=== PATIENT | female | born 1985 | race Caucasian/White ===

== ENCOUNTER 2017-03-28 17:12 | Observation (INO) | payer OTHER ==
[2017-03-28] MEDS ORDERED: Morphine 4 MG/ML VIAL ONE (18:15)
[2017-03-28] MEDS ORDERED: Ketorolac Tromethamine 30 MG/ML VIAL ONE (19:52)
--- NOTE | 2017-03-28 20:34 | RAD ---
AP VIEW CHEST 03/28/17 HISTORY: Abdominal pain. AP view chest is obtained. The lungs are well aerated. No evidence of active intrathoracic disease se en. No evidence of effusions, pneumonia or pneumothorax seen. IMPRESSION: Unremarkable AP view chest. POS: [facility]
--- NOTE | 2017-03-28 21:33 | ULT ---
HISTORY: Right upper quadrant pain. RIGHT UPPER QUADRANT ULTRASOUND 03/28/17 Multiple longitudinal and transverse images of the right upper quadrant of the abdomen is obtained us ing a multihertz curvilinear transducer. Real time, color flow and spectral waveform doppler analysis used to evaluate the right upper quadrant. The patient has some hepatomegaly. Mid clavicular measurement measures 20.7 cm. There is marked gallbladder wall thickening. Gallbladder wall measures up to 6 mm in thickness. There is echogenic material seen within the gallbladder lumen compatible with gallbladder sludge and some small stones. Common bile duct is of normal size measuring 5 mm. No evidence of intrahepatic biliary dilatation is seen. The visualized portions of the pancreas is unremarkable. The right kidney is unremarkable measu ring 11.6 cm from pole to pole. No evidence of renal parenchymal masses or lesions seen. No evidence of ascites seen. Normal hepatopedal flow is seen. IMPRESSION: Gallbladder wall thickening with gallstones and gallbladder sludge. Findings concerning for cholelith iasis and cholecystitis. POS: [facility]
[2017-03-28] MEDS ORDERED: Ketorolac Tromethamine 30 MG/ML VIAL IVP PRN (23:22)
[2017-03-28] MEDS ORDERED: Acetaminophen 325 MG TAB PO PRN (23:23)
[2017-03-28] MEDS ORDERED: Ondansetron ODT 4 MG TAB SL PRN (23:23)
[2017-03-28] MEDS ORDERED: Ondansetron HCl/PF 4 MG/2 ML Vial IVP PRN (23:23)
[2017-03-28] MEDS: Sodium Chloride 0.9% 1,000 ML IV SCH (23:32)
[2017-03-29] MEDS: Sodium Chloride 0.9% 1,000 ML IV SCH (02:41)
[2017-03-29] MEDS ORDERED: Ondansetron HCl/PF 4 MG/2 ML Vial IVP PRN ×2 (03:46→11:11)
[2017-03-29] MEDS ORDERED: Lactated Ringer's 1,000 ML IV SCH (04:00)
[2017-03-29] MEDS ORDERED: Acetaminophen 1,000 MG in Premix Bag 1 BAG IVPB SCH (06:00)
[2017-03-29] MEDS: Ketorolac Tromethamine 30 MG/ML VIAL IVP SCH ×2 (06:00→08:01)
[2017-03-29] MEDS ORDERED: Ketorolac Tromethamine 30 MG/ML VIAL IVP SCH (08:00)
--- NOTE | 2017-03-29 08:55 | HP ---
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 She is 10 months and this is her second episode of epigastric right upper quadrant pain with back radiation, associated with nausea. She had a severe episode yest erday. She presents to the emergency room. Liver function tests are normal. Ultrasound reveals gal lstones, gallbladder sludge and normal bile duct caliber 5 mm. She was admitted overnight for intrav enous antibiotics. ALLERGIES: None. TOBACCO: Five or 6 cigarettes a day. ALCOHOL: Rarely. MEDICATIONS: None routinely. PAST SURGICAL HISTORY: . PAST MEDICAL HISTORY: Noncontributory. REVIEW OF SYSTEMS: Ten point noncontributory. PHYSICAL EXAMINATION: VITAL SIGNS: Weight 164 pounds, 97.9 degrees, 49, 16, 97/47. HEENT: Unremarkable. Sclerae nonicteric. LUNGS: Clear to auscultation. CARDIAC: Regular rate and rhythm without murmur or gallop. ABDOMEN: Soft. Mild tenderness in right upper quadrant with guarding. EXTREMITIES: Unremarkable. LYMPH: Neck, axilla, groins without lymphadenopathy. NEURO: Neurologically intact without deficit. LABORATORY: Hemoglobin 14.3, white count 9.3. Urine test is negative. Sodium 135, potass ium 3.7, carbon dioxide 21, BUN 8, creatinine 0.65, bilirubin 0.6, AST, ALT normal at 19 and 18 respe ctively, alkaline phosphatase 54. ASSESSMENT AND PLAN: Cholecystitis and cholelithiasis. Recommend laparoscopic video cholecystectomy . Risks of infection, bleeding, visceral and biliary injury, possibly open procedure were explained. Questions answered and she consents. We will plan laparoscopic cholecystectomy today and plan disc harge home postoperatively when she is tolerating liquids. Diet and activity postoperatively are as tolerated. There were no activity restrictions. She is encouraged to be ambulatory and not smoke. She should follow up in my office in 2-3 weeks postoperatively.
[2017-03-29] MEDS ORDERED: FLU VACC QS2017-18 36 mo. & older 0.5 ML SYRINGE IM ONE (09:00)
[2017-03-29] MEDS ORDERED: Bupivacaine/Epinephrine 0.25% 30 ML VIAL ONE (09:58)
[2017-03-29] MEDS ORDERED: Fentanyl 250 MCG/5 ML VIAL ONE (10:03)
[2017-03-29] MEDS ORDERED: Levofloxacin 500 mg/D5W 100 ml Premix Bag ONE (10:04)
[2017-03-29] MEDS ORDERED: Promethazine HCl 25 MG/ML VIAL IM PRN (11:11)
[2017-03-29] MEDS ORDERED: HYDROmorphone 2 MG/ML VIAL SLOW IVP PRN (11:11)
[2017-03-29] MEDS ORDERED: Meperidine HCl/PF 25 MG/ML VIAL SLOW IVP PRN (11:11)
[2017-03-29] MEDS ORDERED: Promethazine HCl 25 MG/ML VIAL SLOW IVP PRN (11:11)
[2017-03-29] MEDS ORDERED: Ketorolac Tromethamine 30 MG/ML VIAL IVP PRN (11:11)
[2017-03-29] MEDS ORDERED: Fentanyl 100 MCG/2 ML VIAL ONE (11:23)
[2017-03-29] MEDS ORDERED: Acetaminophen 500 MG TAB PO PRN (12:10)
[2017-03-29] MEDS ORDERED: Ondansetron ORAL SOLN. 4 MG/5 ML UDCUP PO PRN ×2 (12:10)
[2017-03-29] MEDS ORDERED: traMADol HCl 50 MG TAB PO PRN ×2 (12:10)
[2017-03-29] MEDS ORDERED: Ibuprofen 600 MG TAB PO PRN (12:10)
[2017-03-29] MEDS ORDERED: Ondansetron ODT 8 MG TAB SL PRN (12:10)
[2017-03-29] MEDS ORDERED: Ondansetron ODT 8 MG TAB PO PRN (12:10)
[2017-03-29] MEDS ORDERED: Ondansetron ODT 4 MG TAB PO PRN (12:10)
--- NOTE | 2017-03-29 13:34 | OP ---
DATE OF PROCEDURE: 03/29/2017 PREOPERATIVE DIAGNOSES: Acute cholecystitis, hydrops of the gallbladder, cholelithiasis, gallbladder outlet obstruction. POSTOPERATIVE DIAGNOSES: Acute cholecystitis, hydrops of the gallbladder, cholelithiasis, gallbladde r outlet obstruction. PROCEDURE: Laparoscopic video cholecystectomy. SURGEON: Dr. Himanshu Sky. ANESTHESIA: General. Local 0.25% Marcaine with epinephrine, 30 mL, mixed with 2% Xylocaine, 10 mL. PROCEDURE IN DETAIL: The patient was taken to the operating room where under general anesthesia, abd omen was prepared with chloraprep, draped in routine fashion. Local anesthetic infiltrated into skin and subcutaneous tissue about each port site. Infraumbilical incision made and pneumoperitoneum to 15 mmHg obtained with the Veress needle, replacing it with a 5 port and laparoscope inserted. Right subxiphoid incision made and 11 port placed, subcostal incision made, mid clavicular anterior axillar y lines and 5 ports placed. Gallbladder was acutely inflamed, thickened wall edematous. Fundus gras ped at the cephalad. Infundibulum grasped and reflected laterally. Cystic artery and duct dissected free. Critical view obtained with two-thirds dissection cystic plate and cystic artery and duct suellen kelsey clipped proximally, divided, and gallbladder dissected free from its edematous, inflamed attachme nts of the liver bed, removing the gallbladder in Endobag and submitted to Pathology. Good hemostasi s ensured with the cautery and irrigant and pneumoperitoneum evacuated. All instruments removed and all skin incisions approximated with interrupted subdermal 4-0 Monocryl and DermaGlue applied.
[2017-03-29 14:05] VITALS: BP 103/60; TEMP 97.9
[2017-03-29] MEDS ORDERED: Ketorolac Tromethamine 30 MG/ML VIAL ONE (14:47)
[2017-03-29] MEDS ORDERED: Propofol 200 MG/20 ML VIAL ONE (14:47)
[2017-03-29] MEDS ORDERED: Ondansetron HCl/PF 4 MG/2 ML Vial ONE (14:47)
[2017-03-29] MEDS ORDERED: Dexamethasone 20 MG/5 ML VIAL ONE (14:47)
[2017-03-29] MEDS ORDERED: Lidocaine 1% PF 5 ML VIAL ONE (14:47)
[2017-03-29] MEDS ORDERED: Glycopyrrolate 0.2 MG/ML 5 ML SYRINGE ONE (14:47)
--- NOTE | 2017-03-29 17:33 | DIS ---
DATE OF ADMISSION: 03/28/2017 DATE OF DISCHARGE: 03/29/2017 DISCHARGE DIAGNOSES: Acute cholecystitis, cholelithiasis, hydrops of the gallbladder, 10 months post . PROCEDURES: Ultrasound of gallbladder, laparoscopic video cholecystectomy. HISTORY: A 32-year-old female, 10 months , second episode of right upper quadrant pain, ba ck radiation, nausea, vomiting, presented to the emergency room. Ultrasound demonstrates gallstones, normal bile duct caliber. Liver function tests normal. She received intravenous fluids and antibio tics overnight and underwent laparoscopic video cholecystectomy, postoperatively recovering, being di scharged home. Follow up in Dr. Sky's office in approximately one to three weeks. Diet and activity as tolerated . No lifting restrictions. [id number]-[id number] Tylenol and ibuprofen for pain; [facility] prescriptions #2 5, one refill given.
--- NOTE | 2017-04-15 15:00 | EKG ---
Test Reason : Blood Pressure : / mmHG Vent. Rate : 047 BPM Atrial Rate : 047 BPM P-R Int : 130 ms QRS Dur : 088 ms QT Int : 466 ms P-R-T Axes : 052 071 049 degrees QTc Int : 412 ms Sinus bradycardia with sinus arrhythmia Otherwise normal ECG Confirmed by NEGIN MENJIVAR D.O. ([id number]), web editor SG ORELLANA ([id number]) on 04/15/2017 2:59:13 PM Referred By: Confirmed By:NEGIN MENJIVAR D.O.
== END 2017-03-29 14:40 | disposition home or self-care (01) ==
LOC: ERS 17:12 → 3SE 20:24
PROVIDERS: ADMIT Specialist; ATTEND Specialist
PROC: 0FT44ZZ Resection of Gallbladder, Percutaneous Endoscopic Approach (ICD-10-PCS; principal; 2017-03-29)
DX: K80.12 Calculus of gallbladder with acute and chronic cholecystitis without obstruction (principal); K82.1 Hydrops of gallbladder; F17.210 Nicotine dependence, cigarettes, uncomplicated; Z98.890 Other specified postprocedural states
CPT/HCPCS: 71010; 76705; 88304; 93005; 96361; 96365; 96374; 96375; 96376; G0378; J0131; J1100; J1885; J1956; J2001; J2270; J2405; J2704; J3010; Q0162

== ENCOUNTER 2017-05-02 00:47 | Inpatient (IN) | payer OTHER ==
[2017-05-02 02:46] LABS: #Eosinphils 0.2 thou/uL (0.0-0.7); #Lymphocytes 1.5 thou/uL (1.20-3.40); #Monocytes 0.5 thou/uL (0.11-0.59); #Neutrophils 2.6 thou/uL (1.40-6.50); %Basophils 0.5 % (0.0-1.0); %Eosinophils 3.8 % (0.0-10.0); %Lymphocytes 32.5 % (21.0-51.0); %Monocytes 9.4 % (0.0-10.0); %Neutrophils 53.8 % (42.0-75.0); Hemoglobin 11.9 g/dL (12.0-16.0); Mean Corpuscular HGB CONC 34.3 g/dL (32.0-36.0); Mean Corpuscular Hemoglobin 32.9 pg (27.0-31.0); Mean Corpuscular Volume 96.1 fl (81.0-99.0); Mean Platelet Volume 7.9 fL (7.4-10.4); Platelet Count 177 thou/uL (130-400); RBC Distribution Width 11.4 % (11.5-14.5); White Blood Cell (WBC) Count 4.8 thou/uL (4.8-10.8)
[2017-05-02 02:54] LABS: BHCG - Serum Negative (NEGATIVE); INR-International Normal Ratio 1.1; PTT 28.1 SEC (22.9-36.1); Pregs Control Background? CLEAR/WHITE (CLR/WHITE); Pregs Control Bar Appear? YES (CONTROL BAR); Prothrombin Time 14.1 SEC (12.0-14.7)
[2017-05-02 03:08] LABS: ALT (SGPT) 463 U/L (8-55); AST (SGOT) 274 U/L (5-34); Albumin 3.7 g/dL (3.5-5.0); Alkaline Phosphatase 260 U/L (40-150); Anion Gap 10 mmol/L (10-20); BUN (Urea Nitrogen) 10 mg/dL (7.0-18.7); Bilirubin, Total 5.1 mg/dL (0.2-1.2); Calc. Creatinine Clearance 0 mL/min (70-130); Calcium 9.1 mg/dL (7.8-10.44); Carbon Dioxide 26 mmol/L (22-29); Chloride 107 mmol/L (98-107); Estimated GFR-MDRD Greater than 90; Globulin 2.6 g/dL (2.4-3.5); Glucose 98 mg/dL (70-105); Lipase 12 U/L (8-78); Potassium 3.7 mmol/L (3.5-5.1); Protein, Total 6.3 g/dL (6.0-8.3); Sodium 139 mmol/L (136-145)
[2017-05-02 03:24] LABS: HBCM Index 0.12 S/CO (0-0.79); HBSAg Index 0.78 S/CO (0-0.99); Hep A IgM AB Non-Reactive (NonReactive); Hep A IgM S/CO 0.17 S/CO (0-0.79); Hep B Surf Ag Non-Reactive S/CO (NonReactive); Hep C IgG Ab Non-Reactive (NonReactive); Hep C Index 0.17 S/CO (0-0.79); Hepatitis B Core IGM Abs Non-Reactive (NonReactive)
[2017-05-02] MEDS ORDERED: Morphine 4 MG/ML Carpuject ONE (05:29)
[2017-05-02] MEDS ORDERED: Ketorolac Tromethamine 30 MG/ML VIAL ONE (05:31)
[2017-05-02] MEDS ORDERED: Ondansetron HCl/PF 4 MG/2 ML Vial IVP PRN ×3 (06:05→13:29)
[2017-05-02] MEDS ORDERED: Acetaminophen 325 MG TAB PO PRN ×2 (06:05→08:33)
[2017-05-02] MEDS ORDERED: Sodium Chloride 0.9% 1,000 ML IV SCH (06:05)
[2017-05-02] MEDS ORDERED: Ondansetron ODT 4 MG TAB SL PRN (06:05)
[2017-05-02 07:43] VITALS: BMI 21.7
--- NOTE | 2017-05-02 09:20 | ULT ---
PRELIMINARY REPORT/[facility]/EMERGENCY AFTER HOURS PROCEDURE: EXAM: US Abdomen Limited, Right Upper Quadrant EXAM DATE/TIME: Exam ordered 05/02/2017 2:04 AM CLINICAL HISTORY: 32 years old, female; Pain and signs and symptoms; Nausea and vomiting; Abdominal pain; Localized; Ri ght upper quadrant (ruq); Prior surgery; Surgery date: 1-6 months; Surgery type: Cholecystectomy TECHNIQUE: Real-time ultrasound of the right upper quadrant with image documentation. COMPARISON: No relevant prior studies available. FINDINGS: Liver: Hepatic steatosis. Mild diffuse intrahepatic biliary ductal dilatation. Extrahepatic bile duct is normal at 5 mm in caliber. Gallbladder: Prior cholecystectomy. Common bile duct: See above. Pancreas: Unremarkable as visualized. Right kidney: Unremarkable. No stones. No solid mass. No hydronephrosis. IMPRESSION: Mild diffuse intrahepatic biliary ductal dilatation without extrahepatic biliary ductal dilatation. Thank you for allowing us to participate in the care of your patient. Dictated and Authenticated by: Don Pedro MD 05/02/2017 2:46 AM Central Time ([place] & [place]) FINAL REPORT RIGHT UPPER QUADRANT ULTRASOUND: DATE: 05/02/17. COMPARISON: 03/28/17. HISTORY: Pain, abnormal liver function tests, prior cholecystectomy. FINDINGS: I agree with the preliminary [facility] report. The imaged pancreas is unremarkable. The tail is partial ly obscured by bowel gas. There is mild intrahepatic biliary dilatation, etiology/significance uncertain. The common bile duct measures in the 5 mm range, within normal limits. Gallbladder is surgically absent. Right kidney m easures 10.8 cm in craniocaudal dimension and demonstrates no stone, hydronephrosis, or mass. IMPRESSION: Mild intrahepatic biliary prominence, of uncertain significance given recent cholecystectomy. Clinic al correlation required. POS: [facility]
[2017-05-02] MEDS ORDERED: Morphine 4 MG/ML VIAL SLOW IVP PRN (09:37)
[2017-05-02] MEDS: Sodium Chloride 0.9% 1,000 ML IV SCH ×2 (10:25→23:12)
[2017-05-02] MEDS: Morphine 2 MG/ML SYRINGE SLOW IVP PRN ×3 (10:39→23:09)
[2017-05-02] MEDS: Nicotine 14 MG PATCH TD SCH (10:47)
--- NOTE | 2017-05-02 10:54 | HP ---
PRIMARY CARE PHYSICIAN: None. CHIEF COMPLAINT: Abdominal pain. HISTORY OF PRESENT ILLNESS: Ms. Simpson is a pleasant 32-year-old lady who was seen at [facility] on 05/02/2017. She was hospitalized at this facility from 03/28/2017 to 03/29/2017 for acute cholecystitis and fabrizio lithiasis. She underwent laparoscopic cholecystectomy. She reports doing well until 3 days ago. At that time, she developed right upper quadrant pain. She describes the pain as sharp, radiating to the back, she vomited once, 3 days ago. She denies any di arrhea. She denies any chest pain. She describes pain has been constant, worse at times, but no kno wn aggravating or relieving factors. She went to the emergency room at [facility] and was subsequently t ransferred to this facility. REVIEW OF SYSTEMS: The following complete review of systems was negative, unless otherwise mentioned in the HPI or below: Constitutional: Weight loss or gain, ability to conduct usual activities. Skin: Rash, itching. Eyes: Double vision, pain. ENT/Mouth: Nose bleeding, neck stiffness, pain, tenderness. Cardiovascular: Palpitations, dyspnea on exertion, orthopnea. Respiratory: Shortness of breath, wheezing, cough, hemoptysis, fever or night sweats. Gastrointestinal: Poor appetite, abdominal pain, heartburn, nausea, vomiting, constipation, or diarr hea. Genitourinary: Urgency, frequency, dysuria, nocturia. Musculoskeletal: Pain, swelling. Neurologic/Psychiatric: Anxiety, depression. Allergy/Immunologic: Skin rash, bleeding tendency. PAST MEDICAL HISTORY: None. PAST SURGICAL HISTORY: Cholecystectomy and section. PSYCHIATRIC HISTORY: Depression. SOCIAL HISTORY: Occasional alcohol use, 5-6 cigarettes a day, no recreational drugs. ALLERGIES: No known drug allergies. CURRENT MEDICATIONS: None. FAMILY HISTORY: Significant for cholelithiasis. PHYSICAL EXAMINATION: GENERAL: On examination, Ms. Simpson is awake and alert, not in acute distress. VITAL SIGNS: Blood pressure is 100/64. Pulse is 43. She is breathing at rate of 16 and saturating 100% on room air. EYES: She has scleral icterus, no conjunctival pallor. ENT: Dry mucosal membranes, no oropharyngeal erythema or exudates. NECK: Supple, nontender, normal range of movement. Trachea is midline. RESPIRATORY: Accessory muscles of breathing are not active. Chest wall movements are symmetric bila terally. LUNGS: Clear to auscultation without wheeze, rhonchi or crepitations. CARDIOVASCULAR: S1 and S2 are heard, regular, and bradycardic. Peripheral pulses are palpable. No carotid bruit, no pericardial rub. ABDOMEN: Soft, mild right upper quadrant tenderness present, no guarding or rigidity. Bowel sounds are heard. Surgical site is clean. NEUROLOGIC: Cranial nerves II-XII are intact, deep tendon reflexes are 2+. SKIN: No rashes or subcutaneous nodules. MUSCULOSKELETAL: The Power is 5/5 in all 4 extremities. LYMPHATIC: No cervical lymphadenopathy. PSYCHIATRIC: Normal mood, normal affect, patient is oriented to person, place, and time. IMAGING DATA AND LABORATORY DATA: Ms. Simpson's labs and investigations were reviewed. I reviewed her e lectrocardiogram, which shows sinus bradycardia, no ST changes to suggest an acute coronary syndrome. I also reviewed her chest x-ray, which does not show any pulmonary infiltrates. She had CT scan of the abdomen and pelvis, which showed post-cholecystectomy changes and mild periportal edema. There was no CT evidence of appendicitis. She had a small amount of free fluid in the pelvis, probably phy siologic according to the radiologist. She also had abdominal ultrasound, which showed mild diffuse intrahepatic biliary ductal dilatation without extrahepatic biliary ductal dilatation. Laboratory in vestigation show normal white count, normocytic anemia with hemoglobin of 11.9, normal platelet count , INR 1.1, normal electrolytes, normal creatinine, elevated total bilirubin of 5.1, elevated AST of 2 74, elevated ALT of 463, and elevated alkaline phosphatase of 260. These parameters have slightly im proved when compared to her previous blood work from 03/2017. She has a negative serum mason t. Acute hepatitis C serology is nonreactive. ASSESSMENT AND PLAN: Ms. Simpson is a pleasant 32-year-old lady who was seen at [facility] on 05/02/2017. Her problem list includes: 1. Abdominal pain: Likely secondary to choledocholithiasis. Ms. Simpson will be admitted to the hospit al and treated with pain medications. 2. Abnormal liver function tests: Obstructive pattern. Will get General Surgery opinion. Further management depending on the recommendations. 3. Dehydration: The patient is clinically dehydrated. I will provide her with intravenous fluids. 4. Tobacco abuse: Counseling cessation and nicotine replacement therapy. LEVEL OF RISK: High. LEVEL OF COMPLEXITY: High.
[2017-05-02] MEDS ORDERED: Iothalamate Meglumine 60% 50 ML VIAL FS ONE (11:13)
[2017-05-02] MEDS ORDERED: Ondansetron HCl/PF 4 MG/2 ML Vial ONE (11:22)
[2017-05-02] MEDS ORDERED: Lidocaine 1% PF 5 ML VIAL ONE (11:22)
[2017-05-02] MEDS ORDERED: Succinylcholine Chloride 20 MG/ML 10 ml SYRINGE FS ONE (11:22)
[2017-05-02] MEDS ORDERED: Dexamethasone 20 MG/5 ML VIAL ONE (11:22)
[2017-05-02] MEDS ORDERED: PROPOFOL 200 MG/20 ML VIAL ONE (11:22)
[2017-05-02] MEDS ORDERED: Fentanyl 100 MCG/2 ML VIAL ONE (11:30)
[2017-05-02] MEDS ORDERED: Promethazine HCl 25 MG/ML VIAL ONE (11:31)
[2017-05-02] MEDS ORDERED: Morphine Sulfate 2 MG/ML SYRINGE SLOW IVP PRN (13:29)
[2017-05-02] MEDS ORDERED: Promethazine HCl 25 MG/ML VIAL SLOW IVP PRN (13:29)
[2017-05-02] MEDS ORDERED: Promethazine HCl 25 MG/ML VIAL IM PRN (13:29)
[2017-05-02] MEDS ORDERED: Indomethacin 50 MG SUPP PR SCH (13:30)
--- NOTE | 2017-05-02 13:34 | RAD ---
ERCP: Date: 05-02-17 History: Right upper quadrant pain, transaminitis, status post cholecystectomy. FINDINGS: Six images from an ERCP provided. Post cholecystectomy clips are present in the right upper quadrant. Initial imaging demonstrates cont rast media within intrahepatic biliary tree and CBD proximally. On image 3 of 6, there is a questiona ble small filling defect seen within the mid CBD. On image 5 there appears to be a balloon inflated w ithin the CBD. On the final image there is a distal filling defect with an meniscus within the distal CBD which coul d represent a stone within the distal CDB. The final image demonstrates prominence of the intra and extrahepatic biliary tree. IMPRESSION: 1. Questionable subtle filling defect seen within the mid CBD on image 3 of 6. Later imaging suggests a balloon inflated within the CBD with final image demonstrating questionable residual filling defec t within distal CBD at ampulla of [place] region. Correlation with real time imaging is essential. This may signify choledocholithiasis. POS: [facility]
--- NOTE | 2017-05-02 16:42 | HP ---
HISTORY OF PRESENT ILLNESS: Ms. Renu Simpson is a 32-year-old female who presented in 03/29 and had a laparoscopic cholecystectomy performed by me. She had normal liver function tests, normal bile duct caliber. She was discharged home the same day. She had been seen in the emergency room. She was t o follow up with me in 1-3 weeks, but did not. She states she is feeling well, doing fairly well unt il the day prior to this admission when she presented to the emergency room having nausea and upper a bdominal pain similar to the pain that she had had previously. In the emergency room, bilirubin was 5.1, AST 274, ALT 263, alkaline phosphatase 260. test negative. Lipase normal. Ultrasoun d obtained revealed dilated intrahepatic ducts, but normal extrahepatic ducts and she was admitted to the medical service with negative hepatitis profile. I was not called of the admission. Noting her recent laparoscopic cholecystectomy, Dr. Bess was consulted. ERCP performed prior to this dict ation, but subsequent after me seeing her filling defects noted in the bile duct, bile duct was decom pressed. I was consulted last night. This morning, the hospice patient care secretary entered a consult for Dr. Ansari since he is compressor stations superintendent. I had already seen the patient and talked to her prior to her ERCP. I then called the secr buffy and asked her to change the consult back to me as she was my patient, I had informed her recent cholecystectomy. ALLERGIES: None. SOCIAL HISTORY: Tobacco, a few cigarettes a day. Alcohol rarely. MEDICATIONS: None routinely. PAST SURGICAL HISTORY: and laparoscopic cholecystectomy, day noted above. PAST MEDICAL HISTORY: Noncontributory. REVIEW OF SYSTEMS: Noncontributory. PHYSICAL EXAMINATION: VITAL SIGNS: Height 5 feet and 11 inches. Weighs 155 pounds. 21 BMI. HEENT: Sclerae nonicteric. LUNGS: Clear to auscultation. CARDIAC: Regular rate and rhythm without murmur or gallop. ABDOMEN: Soft. Mild tenderness in epigastrium, but no guarding, no rebound. Abdomen is nondistende d. EXTREMITIES: Unremarkable. SKIN: Nonjaundiced. ASSESSMENT AND PLAN: Post-cholecystectomy abdominal pain with mild intrahepatic ductal dilatation an d liver function test elevation suggestive of choledocholithiasis. Dr. Bess is being consulted in ERCP by the time this dictation has been performed. Choledocholithiasis decompressed. The patien t can be discharged home later today.
--- NOTE | 2017-05-02 23:59 | CON ---
DATE OF CONSULTATION: 05/02/2017 REFERRING PHYSICIANS: Himanshu Sky M.D. and Akbar Bains D.O. REASON FOR CONSULTATION: Abdominal pain, abnormal LFTs and possibility of common bile duct stone. HISTORY OF PRESENT ILLNESS: Ms. Renu Simpson is a very pleasant 32-year-old hospitalized wi th abdominal pain, nausea, and vomiting and was found to have abnormal LFTs. She had abdominal sonog marlon yesterday which revealed dilation of the intrahepatic duct. The common bile duct appears normal. The patient's LFTs are very high. She is jaundiced. The patient had laparoscopic cholecystectomy by Dr. Sky in 03/29/2017. She did well after surgery that went well. She was doing very well unt monday when she started having abdominal pain in right upper quadrant, nausea and vomiting. The re is no history fever or chills. She also . She came to the hospital because of abdominal linda n and the pain is similar to the pain she had when she had gallstones. The patient appears comfortab le and she has received the pain medicine last night and she is not using pain medicine until from time. At the present, comes for abdominal pain, right upper quadrant. She has no nausea this mor mary beth. No history of fever or chills. No relevant history. ALLERGIES: None. SOCIAL HISTORY: The patient still smokes and drinks alcohol. PAST MEDICAL HISTORY: None. PAST SURGICAL HISTORY: 1. Status post . 2. Status post laparoscopic cholecystectomy, 03/2017, by Dr. Sky. Her menstrual history appears regular. She usually has periods brief, a couple of days. LMP one mon th ago. REVIEW OF SYSTEMS: Ten of review of systems was totally unremarkable except for the abdominal pain a nd nausea. PHYSICAL EXAMINATION: GENERAL: She is a thin-built who appears comfortable. VITAL SIGNS: Stable. Temperature 97.5 degrees Fahrenheit, pulse 48, blood pressure 100/64. HEENT: She is icteric. NECK: Supple. No adenitis or thyromegaly noted. CARDIOVASCULAR SYSTEM: First and second heart sounds normal. LUNGS: Clear to auscultation. ABDOMEN: Soft. Abdomen is nondistended. Abdomen is tender over the right upper quadrant epigastric area and periumbilical area. There is no rebound or guarding. No organomegaly or masses. Bowel so unds audible. EXTREMITIES: Reveal no edema. LABORATORY DATA: CBC: WBC 4800, hemoglobin 11.9, hematocrit 36.6, MCV 96.1, platelet count 177,000, polymorphs 53, and lymphocytes 32. The chemistry panel: Chem-7 is normal. Glucose is 98, bilirubi n 5.1, AST 274, ALT 463, alkaline phosphatase 260, lipase is normal at 12. An abdominal ultrasound r evealed dilation of the intrahepatic bile duct, but the common bile duct appears normal caliber. Oth erwise, it is normal. CLINICAL IMPRESSION: A 32-year-old female status post laparoscopic cholecystectomy one mon th ago. She presents with abdominal pain, nausea, and vomiting. Her liver function tests are elevat ed. Also, sonogram shows dilation of intrahepatic duct. It appears that patient most likely has a c ommon bile duct stone. I had a long talk with Mr. Simpson and explained about the plan to proceed with [employer] and papillotomy and possible stone extraction. She was explained about risks involved history in cludes perforation, bleeding, infection and pancreatitis. She fully understood the explanation and i s agreeable. I will plan for ERCP later on today.
--- NOTE | 2017-05-03 00:32 | OP ---
DATE OF PROCEDURE: 05/02/2017 OPERATIVE PROCEDURE: 1. Endoscopic retrograde cholangiopancreatography with papillotomy. 2. Balloon sweep of the common bile duct with the balloon size 9-12 mm. PREOPERATIVE DIAGNOSES: A 32-year-old female with status post laparoscopic cholecystectomy a month ago. The patient presents with abdominal pain and abnormal LFTs. An abdominal sonogram showing dilation of the intrahepatic ducts, but the common duct appears normal. POSTOPERATIVE DIAGNOSES: The common bile duct appears normal without any definite filling defects. The duct was swept with balloon size 9-12 mm x 2 and the common bile duct emptied very well. PROCEDURE IN DETAIL: The patient was intubated and was given sedation by the Anesthesia Department. The patient transferred from the stretcher to the fluoroscopy table. Initially, she was placed on the left lateral position and was turned on the stomach. A bite block was placed. A PentZazzy video duodenoscope under direct vision was passed down the oropharynx, past the GE junction. The patient had retained food material in the stomach and also in the duodenum. The papilla was identified. There was bile drainage noted. The papilla was cannulated over a guidewire into the pancreatic duct. No contrast given. The fluoroscopy showed a wire to be in the pancreatic duct. Subsequently, the CBD was cannulated directly without any difficulty. Contrast injection showed the duct to be normal in caliber and no definite filling defect seen. After cannula was removed, the duct emptied fairly promptly. A papillotomy at 12 o'clock position and 1.25-1.5 cm cut was made. Following the papillotomy, the bile duct was swept with the balloon. The papillotome was removed. Over the guidewire, the balloon was advanced into the common bile duct. It was advanced actually past the cystic duct all the way proximally. The balloon was inflated and brought out slowly and contrast injection. I did not see any definite filling defects. The balloon was removed without difficulty. The stomach was decompressed and the scope removed. RECOMMENDATIONS: 1. Discontinue n.p.o. 2. Clear liquid diet. 3. Repeat LFTs tomorrow. If the LFTs started coming down, hopefully, the patient can be discharged home in the near future. MTDD
[2017-05-03] MEDS ORDERED: Ketorolac Tromethamine 30 MG/ML VIAL IVP SCH (01:15)
[2017-05-03] MEDS: Morphine 2 MG/ML SYRINGE SLOW IVP PRN ×3 (02:34→21:23)
--- NOTE | 2017-05-03 05:57 | PRG ---
DATE OF VISIT: 05/02/2017 TIME OF VISIT: 08:20 p.m. HISTORY OF PRESENT ILLNESS: Renu Simpson is a very pleasant 32-year-old female hospitalized with abdominal pain and abnormal LFTs. The sonogram shows dilated intrahepatic ducts. She underwen t an ERCP AND the cholangiogram actually appeared normal. I did a sphincterotomy and balloon sweep o f bile duct. The patient is sleepy. She appears comfortable. She has very minimal abdominal discom fort. No nausea. She has a clear liquid diet. PHYSICAL EXAMINATION: GENERAL: Appears very sleepy, but comfortable. VITAL SIGNS: Stable. Temperature 97.7 degrees Fahrenheit, pulse is 67, blood pressure 120/81. ABDOMEN: Soft. Nondistended. She is minimally tender over the epigastric area. Recommend repeat LFTs tomorrow and if they are declining, may consider advancing diet and discharge h ome possibly tomorrow.
[2017-05-03 06:27] LABS: ALT (SGPT) 313 U/L (8-55); AST (SGOT) 131 U/L (5-34); Albumin 3.2 g/dL (3.5-5.0); Alkaline Phosphatase 279 U/L (40-150); Anion Gap 11 mmol/L (10-20); BUN (Urea Nitrogen) 12 mg/dL (7.0-18.7); Bilirubin, Total 4.9 mg/dL (0.2-1.2); Calc. Creatinine Clearance 166 mL/min (70-130); Calcium 8.3 mg/dL (7.8-10.44); Carbon Dioxide 22 mmol/L (22-29); Chloride 107 mmol/L (98-107); Estimated GFR-MDRD Greater than 90; Globulin 2.6 g/dL (2.4-3.5); Glucose 108 mg/dL (70-105); Potassium 3.6 mmol/L (3.5-5.1); Protein, Total 5.8 g/dL (6.0-8.3); Sodium 136 mmol/L (136-145)
[2017-05-03 06:33] LABS: ALT (SGPT) 325 U/L (8-55); AST (SGOT) 137 U/L (5-34); Albumin 3.1 g/dL (3.5-5.0); Alkaline Phosphatase 275 U/L (40-150); Protein, Total 5.8 g/dL (6.0-8.3)
[2017-05-03] MEDS: Nicotine 14 MG PATCH TD SCH (08:39)
--- NOTE | 2017-05-03 10:06 | PRG ---
DATE OF SERVICE: 05/03/2017 SUBJECTIVE: Ms. Renu Simpson is doing well this morning. She has not had any nausea or vomiting. Sh e feels a little better this morning relative to yesterday. Yesterday, ERCP revealed no obvious fill ing defects in the bile duct. Radiology interpretation revealed a small defect, this could be an air bubble. Certainly, balloon was swept through the common duct and no stones were seen, it is the charlie ology of her liver function test elevation. Her Hepatitis serology is negative. Her lungs are clear to auscultation. Her abdomen is soft, mild tenderness in epigastric right upper quadrant without peritoneal signs, without guarding. At this point, the etiology of her liver functi on test elevation is uncertain. It is most likely related to her recent surgery. There could be annetta ma around the ampulla post-procedure that may cause some biliary stasis. We will recheck her liver f unction tests tonight. Dr. Bess started on clear liquids and from my standpoint, she can be adv anced to a regular diet. We will await Dr. Bess's input. I have encouraged to be ambulatory, w ill plan to check her liver function test tomorrow.
[2017-05-03] MEDS: Ketorolac Tromethamine 30 MG/ML VIAL IVP PRN ×3 (10:33→23:15)
--- NOTE | 2017-05-03 11:47 | PRG ---
DATE OF SERVICE: 05/03/2017 SUBJECTIVE: This is a 32-year-old female who has had a laparoscopic cholecystectomy one month ago. The patient presents with abdominal pain and abnormal LFTs. The abdominal sonogram shows dilation of intrahepatic duct. She underwent an ERCP and had_ subtle filling defect. She also underwent a papillotomy with balloon sweep. As per radiologist, thre may be a_stone at the ampulla. However, the initial cholangiogram did not really show any filling defects. Her abdominal pain is better, but still persists. She has no more nausea. She is tolerating clear liquid diet. PHYSICAL EXAMINATION: GENERAL: Afebrile, temperature 98.8 degrees Fahrenheit, pulse is 62, blood pressure 114/83. HEENT: She is icteric. CARDIOVASCULAR SYSTEM: Within normal limits. ABDOMEN: Soft and nondistended. She is still minimally tender over the epigastric area and periumbilical area. There is no rebound or guarding. LABORATORY DATA: Remains elevated, did not show any improvement in her liver function test. The bilirubin is 4, AST is 137, ALT 327, alkaline phosphatase is 275. CLINICAL IMPRESSION: Abdominal pain, abnormal LFTs. The initial cholangiogram did not show any definite stones yesterday. She also underwent ERCP with papillotomy and balloon sweep. RECOMMENDATIONS: 1. Advance diet to a regular diet. 2. Empiric antibiotic therapy with some Cipro or Levaquin. 3. Follow up LFTs. MTDD
[2017-05-03] MEDS: Sodium Chloride 0.9% 1,000 ML IV SCH (13:26)
--- NOTE | 2017-05-03 16:32 | PDOC.PN ---
- Subjective Encounter Start Date: 05/03/17 Encounter Start Time: 09:20 Pt seen for followup re: abdo pain. Says pain is better, controlled with toradol. Nausea better. No fevers. - Objective MAR Reviewed: Yes Vital Signs & Weight: Vital Signs (12 hours) Temp Pulse Resp BP Pulse Ox 05/03/17 15:34 97.6 F 81 16 108/69 97 05/03/17 11:51 97.9 F 60 16 115/76 05/03/17 08:00 98.8 F 62 16 05/03/17 07:57 98.8 F 62 16 114/83 100 Weight Admit Weight 155 lb 6 oz Weight 155 lb 6 oz I&O: 05/02/17 05/03/17 05/04/17 06:59 06:59 06:59 Intake Total 1640 Balance 1640 Result Diagrams: 05/02/17 02:27 05/03/17 04:44 Phys Exam - Physical Examination Constitutional: NAD HEENT: moist MMs Neck: supple Respiratory: clear to auscultation bilateral Cardiovascular: RRR Mild RUQ tenderness, no guarding or rigidity Neurological: moves all 4 limbs Psychiatric: normal affect Skin: no rash Dx/Plan (1) Abdominal pain Code(s): R10.9 - UNSPECIFIED ABDOMINAL PAIN Status: Acute (2) Abnormal LFTs Code(s): R79.89 - OTHER SPECIFIED ABNORMAL FINDINGS OF BLOOD CHEMISTRY Status : Acute (3) Tobacco abuse Code(s): Z72.0 - TOBACCO USE Status: Chronic - Plan * . s/p ERCP. d/w GI service. Pt to be started on antibiotics. Continue PRN toradol. Follow LFTs. Review of Systems - Review of Systems Constitutional: negative: fever, chills, sweats, weakness, malaise Gastrointestinal: Nausea, Abdominal Pain. negative: Vomiting, Diarrhea, Constipation, Melena, Hematochezia - Medications/Allergies Allergies/Adverse Reactions: Allergies Allergy/AdvReac Type Severity Reaction Status Date / Time No Known Allergies Allergy Verified 03/28/17 23:07 Medications: Current Medications Acetaminophen (Tylenol) 650 mg PO Q4H PRN PRN Reason: Headache/Fever or Pain Last Admin: 05/03/17 02:10 Dose: 650 mg Sodium Chloride (Normal Saline 0.9%) 1,000 mls @ 70 mls/hr IV .[id number] [facility] Last Admin: 05/03/17 13:26 Dose: Not Given Ciprofloxacin/Dextrose 400 mg/ (Device) 200 mls @ 200 mls/hr IVPB 1000,2200 [facility] Last Admin: 05/03/17 10:40 Dose: 200 mls Ketorolac Tromethamine (Toradol) 15 mg IVP Q6H PRN PRN Reason: Pain Stop: 05/08/17 09:31 Last Admin: 05/03/17 16:23 Dose: 15 mg Morphine Sulfate (Morphine) 2 mg SLOW IVP Q4H PRN PRN Reason: Pain Last Admin: 05/03/17 06:31 Dose: 2 mg Nicotine (Nicoderm Patch) 14 mg TD 1100 [facility] Last Admin: 05/03/17 08:39 Dose: Not Given Ondansetron HCl (Zofran) 4 mg IVP Q6H PRN PRN Reason: Nausea/Vomiting Sodium Chloride (Flush - Normal Saline) 10 ml IVF PRN PRN PRN Reason: Saline Flush
[2017-05-04] MEDS: Ketorolac Tromethamine 30 MG/ML VIAL IVP PRN (04:01)
[2017-05-04] MEDS: Sodium Chloride 0.9% 1,000 ML IV SCH (04:05)
[2017-05-04 04:20] LABS: ALT (SGPT) 228 U/L (8-55); AST (SGOT) 64 U/L (5-34); Albumin 3.1 g/dL (3.5-5.0); Alkaline Phosphatase 268 U/L (40-150); Bilirubin, Direct 1.3 mg/dL (0.1-0.3); Bilirubin, Total 1.9 mg/dL (0.2-1.2); Protein, Total 5.9 g/dL (6.0-8.3)
[2017-05-04 04:22] LABS: ALT (SGPT) 224 U/L (8-55); AST (SGOT) 65 U/L (5-34); Albumin 3.1 g/dL (3.5-5.0); Alkaline Phosphatase 264 U/L (40-150); Anion Gap 11 mmol/L (10-20); BUN (Urea Nitrogen) 12 mg/dL (7.0-18.7); Bilirubin, Total 1.9 mg/dL (0.2-1.2); Calc. Creatinine Clearance 160 mL/min (70-130); Calcium 8.3 mg/dL (7.8-10.44); Carbon Dioxide 22 mmol/L (22-29); Chloride 106 mmol/L (98-107); Estimated GFR-MDRD Greater than 90; Globulin 2.8 g/dL (2.4-3.5); Glucose 86 mg/dL (70-105); Potassium 3.9 mmol/L (3.5-5.1); Protein, Total 5.9 g/dL (6.0-8.3); Sodium 135 mmol/L (136-145)
[2017-05-04 05:29] VITALS: BP 119/75; TEMP 98.5
[2017-05-04] MEDS: Nicotine 14 MG PATCH TD SCH (08:18)
--- NOTE | 2017-05-04 09:16 | PRG ---
DATE OF SERVICE: 05/04/2017 SUBJECTIVE: Ms. Simpson is doing well today. She is not having any complaints. Her liver function test s are declining and almost normal. I do believe that she had probably a retained stone that was not appreciated on ERCP, but decompressed after sphincterotomy. She is doing well. PHYSICAL EXAMINATION: ABDOMEN: Soft, nontender. LUNGS: Clear to auscultation. From my standpoint, the patient can be discharged home and followup in my office as needed. She shou ld call if she has any problems. I will be glad to see her. Note her antibiotics have been disconti nued.
--- NOTE | 2017-05-04 13:36 | DIS ---
DATE OF ADMISSION: 05/02/2017 DATE OF DISCHARGE: 05/04/2017 PRIMARY CARE PHYSICIAN: None. DISCHARGE DIAGNOSIS: Choledocholithiasis. CONDITION OF PATIENT ON THE DAY OF DISCHARGE: Stable. I assessed Ms. Simpson on the day of discharge. She denies any chest pain or shortness of breath. She denies any abdominal pain. No nausea or vomit ing. Tolerating diet. Vital signs are stable. S1 and S2 are heard, regular. Lungs are clear to au scultation bilaterally. Abdomen is soft, nontender, bowel sounds are heard. CONSULTATIONS DURING THIS HOSPITALIZATION: General surgery, Dr. Sky and Gastroenterology, Dr. Kay perkins. HOSPITAL COURSE: Ms. Simpson is a pleasant 32-year-old lady who was admitted to [facility] for abnormal liver function tests and abdominal pain. Abdominal ultrasound showed mild dif fuse intrahepatic biliary ductal dilatation without extrahepatic biliary ductal dilatation. She was seen by General Surgery service. She was also seen by Gastroenterology Service and underwent ERCP on 05/02/2017. The common bile duct appeared normal without any definite filling defects. Her abdomin al pain improved. Her liver function test still abnormal on 05/03/2017 but started significantly charmaine nding down by 05/04/2017. She is also pain free and tolerating diet and is being discharged home in a stable condition. She is advised to follow up with her primary care physician in 3-5 days for foll owup. She is also advised to stop smoking. On the day of discharge, she has a sodium 135; potassium 3.9; creatinine 0.56;total bilirubin 1.9, de creased from 5.1 on 05/02/2017; AST 65, decreased from 274 on 05/02/2017; ALT 224, decreased from 463 on 05/02/2017; alkaline phosphatase 264, decreased from 279 on 05/03/2017, and albumin 3.1. She is advised to return to emergency room for new or worsening symptoms. DISCHARGE DESTINATION: Home. TOTAL AMOUNT OF TIME SPENT COORDINATING THIS DISCHARGE: 26 minutes.
--- NOTE | 2017-05-13 17:49 | EKG ---
Test Reason : Blood Pressure : / mmHG Vent. Rate : 055 BPM Atrial Rate : 055 BPM P-R Int : 128 ms QRS Dur : 088 ms QT Int : 456 ms P-R-T Axes : 062 079 051 degrees QTc Int : 436 ms Sinus bradycardia Otherwise normal ECG Confirmed by NEGIN MENJIVAR D.O. ([id number]), commercial production editor SG ORELLANA ([id number] on 05/13/2017 5:48:06 PM Referred By: Confirmed By:NEGIN MENJIVAR D.O.
== END 2017-05-04 11:06 | disposition home or self-care (01) | DRG 446 ==
LOC: ERS 00:47 → T4-A 04:42
PROVIDERS: ADMIT Family Medicine; ATTEND Family Medicine
PROC: 0F798ZZ Dilation of Common Bile Duct, Via Natural or Artificial Opening Endoscopic (ICD-10-PCS; principal; 2017-05-02)
DX: K80.50 Calculus of bile duct without cholangitis or cholecystitis without obstruction (principal); E86.0 Dehydration; F17.210 Nicotine dependence, cigarettes, uncomplicated; Z90.49 Acquired absence of other specified parts of digestive tract; F32.9 Major depressive disorder, single episode, unspecified
CPT/HCPCS: 36415; 74330; 76705; 80053; 80074; 83605; 83690; 84703; 85025; 85610; 85730; 93005; 96374; 96375; 99406; J0744; J1100; J1610; J1885; J2001; J2270; J2405; J2550; J2704; J3010; Q9961